=== PATIENT | male | born 1995 | race Hispanic/Latino ===

== ENCOUNTER 2021-02-06 14:16 | Emergency (ER) | payer BC ==
--- NOTE | 2021-02-06 15:20 | RAD REPORT ---
EXAM DESCRIPTION: RAD - Chest Single View - 02/06/2021 2:56 pm CLINICAL HISTORY: DYSPNEA COMPARISON: No comparisons FINDINGS: Lines: None. Lungs: No evidence of edema or pneumonia. Pleural: No significant pleural effusions or pneumothorax. Cardiac: The heart size is within normal limits. Bones: No acute fractures. Other: IMPRESSION: No acute cardiopulmonary disease.
[2021-02-06] MEDS ORDERED: ACETAMINOPHEN 500 MG TAB ONE (15:21)
--- NOTE | 2021-02-06 16:39 | ER ---
Nurse's Notes [facility] Name: Sae Abbott Age: 25 yrs Sex: Male : 1995 Arrival Date: 02/06/2021 Time: 14:20 Bed 24 Private MD: Diagnosis: Coronavirus infection, unspecified Presentation: 02/06 14:32 Chief complaint: Patient states: sob, fever x 3days, tmax 103. Coronavirus screen: tr6 Vaccine status: Patient reports being unvaccinated. At this time, unable to obtain information related to travel outside the [place] fatigue, fever, shortness of breath, Client reports previous positive COVID test result. Ebola Screen: No symptoms or risks identified at this time. Initial Sepsis Screen: Does the patient meet any 2 criteria? Temp <36.0*C (96.8*F)) or > 38.3*C (100.9*F). HR > 90 bpm. Yes Does the patient have a suspected source of infection?. Risk Assessment: Do you want to hurt yourself or someone else? Patient reports no desire to harm self or others. Onset of symptoms is unknown. 14:32 Method Of Arrival: Ambulatory tr6 14:32 Acuity: EBER 2 tr6 Triage Assessment: 14:53 General: Appears uncomfortable, unkempt, Behavior is calm, cooperative, appropriate for tr6 age. Pain: Complains of pain in generalized body aches. EENT: No deficits noted. Neuro: No deficits noted. Cardiovascular: Rhythm is sinus tachycardia. Respiratory: Reports shortness of breath Onset: The symptoms/episode began/occurred gradually, the patient has moderate shortness of breath. GI: No deficits noted. : No deficits noted. Derm: No deficits noted. Musculoskeletal: No deficits noted. Historical: - Allergies: 14:53 No Known Allergies; tr6 - Home Meds: 14:53 None [Active]; tr6 - PMHx: 14:53 None; tr6 - PSHx: 14:53 None; tr6 - Immunization history:: Adult Immunizations up to date, Client reports having NOT received the Covid vaccine. - Social history:: Smoking status: unknown. Screenin:35 Abuse screen: Denies threats or abuse. Denies injuries from another. Nutritional tr6 screening: No deficits noted. Tuberculosis screening: No symptoms or risk factors identified. Fall Risk None identified. Assessment: 14:35 Pain: Denies pain. Cardiovascular: Rhythm is sinus tachycardia. Respiratory: Airway is tr6 patent Respiratory effort is even, unlabored, 16:00 Reassessment: No changes from previously documented assessment. Patient and/or family bp updated on plan of care and expected duration. Pain level reassessed. Patient is alert, oriented x 3, equal unlabored respirations, skin warm/dry/pink. ALL CURRENT ORDERS COMPLETE. 16:37 Reassessment: Pt COVID+ per lab, Lo Arango, PLASTIC PANEL INSTALLER aware. es2 16:48 Reassessment: PT D/C HOME AMBULATORY, DX WITH COVID 19. es2 Vital Signs: 14:32 BP 122 / 85; Pulse 135; Resp 20; Temp 103.1(O); Pulse Ox 100% on R/A; tr6 16:00 BP 110 / 80; Pulse 111; Resp 20; Pulse Ox 99% ; bp 16:39 BP 133 / 92; Pulse 108; Resp 20; Pulse Ox 99% ; es2 ED Course: 14:20 Patient arrived in ED. as 14:23 Lo Arango[facility] kb 14:23 Shin Loomis MD is Attending Physician. kb 14:34 Triage completed. tr6 14:35 Patient has correct armband on for positive identification. Bed in low position. Call tr6 light in reach. Side rails up X 1. baking assistant on. Pulse ox on. NIBP on. 14:54 No provider procedures requiring assistance completed. tr6 14:55 Ron Valentino, RN is Primary Nurse. bp 14:57 Chest Single View XRAY In Process Unspecified. EDMS 16:39 Patient notified of wait time. es2 16:48 Patient did not have IV access during this emergency room visit. es2 Administered Medications: 14:56 Drug: Tylenol 1000 mg Route: PO; bp 16:40 Follow up: Response: No adverse reaction es2 Outcome: 16:38 Discharge ordered by . kb 16:48 Discharged to home ambulatory. es2 16:48 Condition: stable 16:48 Discharge instructions given to patient, Instructed on discharge instructions, follow up and referral plans. Demonstrated understanding of instructions, follow-up care. 16:50 Patient left the ED. es2 Signatures: Dispatcher [employer] EDMS Lo Arango, PHOTO SPECIALIST-C PHOTO SPECIALIST-Panchitob Varsha Red Brian RN RN bp Yolanda Rendon RN RN tr6 Goldie Najera RN RN es2 Corrections: (The following items were deleted from the chart) 16:50 16:48 Discharge instructions given to patient, Instructed on discharge instructions, es2 follow up and referral plans. medication usage, Demonstrated understanding of instructions, follow-up care, medications, Prescriptions given X 3, es2
--- NOTE | 2021-02-06 16:39 | EDPHYS ---
Physician Documentation [facility] Name: Sae Abbott Age: 25 yrs Sex: Male : 1995 Arrival Date: 02/06/2021 Time: 14:20 Bed 24 Private MD: ED Physician Shin Loomis HPI: 02/06 15:09 This 25 yrs old Male presents to ER via Ambulatory with complaints of Fever, kb Shortness Of Breath. 15:09 The patient or guardian reports cough, that is intermittent, described as moderate, kb difficulty breathing, flu symptoms, low-grade fever, myalgias. Onset: The symptoms/episode began/occurred 4 day(s) ago. Severity of symptoms: At their worst the symptoms were mild, moderate, in the emergency department the symptoms are unchanged. Modifying factors: The symptoms are alleviated by nothing, the symptoms are aggravated by nothing. Associated signs and symptoms: Pertinent positives: fever. The patient has not experienced similar symptoms in the past. The patient has not recently seen a physician. Historical: - Allergies: 14:53 No Known Allergies; tr6 - Home Meds: 14:53 None [Active]; tr6 - PMHx: 14:53 None; tr6 - PSHx: 14:53 None; tr6 - Immunization history:: Adult Immunizations up to date, Client reports having NOT received the Covid vaccine. - Social history:: Smoking status: unknown. ROS: 15:08 Cardiovascular: Negative for chest pain, palpitations, and edema. kb 15:08 Constitutional: Positive for body aches, chills, fatigue, fever, malaise. 15:08 Respiratory: Positive for cough, dyspnea on exertion, Negative for hemoptysis, orthopnea, pleurisy, shortness of breath, sputum production, wheezing. 15:08 All other systems are negative. Exam: 15:08 Constitutional: This is a well developed, well nourished patient who is awake, alert, kb and in no acute distress. Head/Face: Normocephalic, atraumatic. ENT: Moist Mucous membranes Respiratory: Respirations even and unlabored. No increased work of breathing, no retractions or nasal flaring. Skin: Warm, dry with normal turgor. Normal color. MS/ Extremity: Pulses equal, no cyanosis. Neurovascular intact. Full, normal range of motion. Neuro: Awake and alert, GCS 15, oriented to person, place, time, and situation. Moves all extremities. Normal gait. Psych: Awake, alert, with orientation to person, place and time. Behavior, mood, and affect are within normal limits. Vital Signs: 14:32 BP 122 / 85; Pulse 135; Resp 20; Temp 103.1(O); Pulse Ox 100% on R/A; tr6 16:00 BP 110 / 80; Pulse 111; Resp 20; Pulse Ox 99% ; bp 16:39 BP 133 / 92; Pulse 108; Resp 20; Pulse Ox 99% ; es2 MDM: 14:24 Patient medically screened. kb 15:08 Data reviewed: vital signs, nurses notes. Data interpreted: Pulse oximetry: on room air kb is 100 %. Interpretation: normal. 16:36 Counseling: I had a detailed discussion with the patient and/or guardian regarding: the kb historical points, exam findings, and any diagnostic results supporting the discharge/admit diagnosis, lab results, radiology results, the need for outpatient follow up, a family practitioner, to return to the emergency department if symptoms worsen or persist or if there are any questions or concerns that arise at home. 02/06 14:27 Order name: Flu; Complete Time: 16:11 kb 02/06 14:28 Order name: Chest Single View XRAY; Complete Time: 15:21 kb 02/06 14:32 Order name: Strep; Complete Time: 16:11 kb 02/06 16:11 Order name: Throat Culture EDMS 02/06 16:36 Order name: SARS-COV-2 RT PCR; Complete Time: 16:36 EDMS Administered Medications: 14:56 Drug: Tylenol 1000 mg Route: PO; bp 16:40 Follow up: Response: No adverse reaction es2 Disposition: 02/07 06:39 Co-signature as Attending Physician, Shin Loomis MD I agree with the assessment and yuridia plan of care. Disposition Summary: 02/06/21 16:38 Discharge Ordered Location: Home kb Condition: Stable kb Diagnosis - Coronavirus infection, unspecified kb Followup: kb - With: Emergency Department - When: As needed - Reason: Worsening of condition Followup: kb - With: Private Physician - When: 2 - 3 days - Reason: Recheck today's complaints, Continuance of care, Re-evaluation by your physician Discharge Instructions: - Discharge Summary Sheet kb - COVID-19 kb - COVID-19 Frequently Asked Questions kb - 10 Things You Can Do to Manage Your COVID-19 Symptoms at Home - [facility] kb Forms: - Medication Reconciliation Form kb - Thank You Letter kb - Antibiotic Education kb - Prescription Opioid Use kb Signatures: Dispatcher [employer] EDMS Lo Arango, JOSE FAJARDO-Shin Hooper MD MD cha Peltier, Brian, RN RN Yolanda Rendon RN RN tr6 Goldie Najera RN es2 Corrections: (The following items were deleted from the chart) 02/06 15:15 14:27 CORONAVIRUS+MR.LAB.BRZ ordered. EDIL EDIL
[2021-02-06 16:55] VITALS: TEMP 103.1
[2021-02-06 16:56] VITALS: O2SAT 99
[2021-02-06 16:58] VITALS: BP 133/92
== END 2021-02-06 16:50 | disposition home or self-care (01) ==
LOC: ER 14:16
DX: U07.1 COVID-19 (principal)
CPT/HCPCS: 87070; 87081; 87804 ×2; 71045; 99284; U0003

== ENCOUNTER 2023-01-05 22:54 | Emergency (ER) | payer BC ==
--- OUTSIDE RECORDS SUMMARY | 2023-01-05 22:58 | XMS REPORT | Continuity of Care Document ---
:[address] [facility] t Address [address] [place] [address] Care Team Providers Name Role Phone PCP, PATIENT DOES NOT HAVE A Primary Care Physician Unavaila ble RADIOLOGY Attending Clinician Unavailable Roger Whitmore MD Attending Clinician [phone] Doctor Unassigned, [place] Attending Clinician Unavailable SHIMON PARADA Attending Clinician Unavailable SHIMON PARADA Attending Clinician Unavailable NOAM APONTE Attending Clinician Unavailable Therapy, Adc Covid Infusion Attending Clinician Unavailable Noam Aponte MD Attending Clinician Lab, Adc Fam Pob I Attending Clinician Unavailable Godfrey Roldan MD Attending Clinician GODFREY ROLDAN Attending Clinician Unavailable TIGRE KELLOGG Attending Clinician Unavailable Payers Payer Name Policy Type Policy Number Effective Date Expiration Date S ource Problems This patient has no known problems. Allergies, Adverse Reactions, Alerts Allergy Allergy Status Severity Reaction(s) Onset Inactive Treating Comm ents Source Name Type Date Date Clinician NO KNOWN Drug Active Univers ALLERGIE Class ity of [facility] Family History Family Member Diagnosis Comments Start Date Stop Date Source Natural father [facility] Natural mother Hy[facility] Social History Social Habit Start Date Stop Date Quantity Comments Source Gender identity [facility] Sexual orientation [facility] History of Social 2022-09-21 2022-09-[address] function 00:00:00 00:00:00 Hospital Tobacco use and 2022-08-14 2022-08-14 Smokeless tobacco Me thodist exposure 00:00:00 00:00:00 non-user Hospital Alcohol intake 2022-08-14 2022-08-14 Current drinker [facility] 00:00:00 00:00:00 of alcohol Hospital (finding) Alcohol Comment 2022-08-14 2022-08-14 occasional [facility] 00:00:00 00:00:00 Hospital Exposure to 2022-05-13 2022-05-23 Not sure University SARS-CoV-2 (event) 00:00:00 10:42:00 [facility] Sex Assigned At [birth year] [facility] 00:00:00 00:00:00 Hospital Smoking Status Start Date Stop Date Source Tobacco [facility] Medications Ordered Filled Start Stop Current Ordering Indication Dosage Frequency Signature Comments Components Source Medication Medication Date Date Medication? Clinician (SIG) Name Name pregabalin 2022- No 150mg Q.5D Take 1 [facility] (LYRICA) 5-19 11-[address] 150 MG 00:00: 05:59 (150 mg Hospita capsule 00 :00 total) by l mouth 2 (two) times a day for 180 days. acetaminoph Yes 325mg Q6H Take 1 [facility] en 4-[address] (TYLENOL) 14:59: (325 mg Hospi ta 325 MG 57 total) by l tablet mouth every 6 (six) hours as needed for fever. cholecalcif Yes 2000U QD Take 1 [facility] umu, 4-[address] vitamin D3, 14:59: (2,000 Hosp juan m 50 mcg 57 Units l (2,000 total) by unit) mouth capsule daily. capsule pregabalin 2022- No Method i (LYRICA) 75 3-14 05-19 st MG capsule 00:00: 00:00 Hospit a 00 :00 l casirivimab 2020-05- No [id number] 1200mg 1,200 mg, Univers -imdevimab 0-05 10-05 Subcutaneo it y of (REGEN-COV 22:00: 20:55 us, ONCE, [place] (EUA)) 00 :00 1 dose, On Medical injection Karen Dominguez 1,200 mg 02/08/21 at 1700, Routine Immunizations Ordered Filled Immunization Date Status Comments Sour e Immunization Name Name Influenza Virus 2012-01-24 Completed Universit y of Vaccine - Whole 00:00:00 [facility] Influenza Virus 2012-01-24 Completed Universit y of Vaccine - Whole 00:00:00 [facility] Influenza Virus 2012-01-24 Completed Universit y of Vaccine - Whole 00:00:00 [facility] Influenza Virus 2011-02-22 Completed Universit y of Vaccine - Whole 00:00:00 [facility] HPV 2011-02-22 Completed University of 00:00:00 [facility] Influenza Virus 2011-02-22 Completed Universit y of Vaccine - Whole 00:00:00 [facility] HPV 2011-02-22 Completed University of 00:00:00 [facility] Influenza Virus 2011-02-22 Completed Universit y of Vaccine - Whole 00:00:00 [facility] HPV 2011-02-22 Completed University of 00:00:00 [facility] HPV 2010-10-26 Completed University of 00:00:00 [facility] HPV 2010-10-26 Completed University of 00:00:00 [facility] HPV 2010-10-26 Completed University of 00:00:00 [facility] Vital Signs Vital Name Observation Time Observation Value Comments Source Systolic blood 2021-02-08 21:41:00 122 mm[Hg] Univer sity of pressure [facility] Diastolic blood 2021-02-08 21:41:00 67 mm[Hg] Unive rsity of pressure [facility] Heart rate 2021-02-08 21:41:00 86 /min [facility] Body temperature 2021-02-08 21:41:[address] [facility] Respiratory rate 2021-02-08 21:41:00 18 /min [facility] Oxygen saturation in 2021-02-08 21:41:00 96 /min [facility] Arterial blood by [facility] Pulse oximetry Branch Body height 2021-02-08 20:40:00 172.7 cm [facility] Body weight 2021-02-08 20:40:00 88.451 kg [facility] BMI 2021-02-08 20:40:00 29.65 kg/m2 [facility] Systolic blood 2022-08-14 19:58:00 155 mm[Hg] [facility] pressure Diastolic blood 2022-08-14 19:58:00 90 mm[Hg] [facility] pressure Heart rate 2022-08-14 19:58:00 121 /min [facility] Respiratory rate 2022-08-14 19:58:00 18 /min [facility] height 2022-08-14 19:58:00 172.7 cm [facility] Body weight 2022-08-14 19:58:00 93.35 kg [facility] BMI 2022-08-14 19:58:00 31.29 kg/m2 [facility] Procedures Procedure Date / Time Performed Performing Clinician Sourc e EMG 2022-09-25 [facility]:20[facility] CERVICAL SPINE 2 2022-08-14 20:53:27 [facility] OR 3 VW Kendy EXTERNAL PROVIDER 2022-05-24 06:01:00 Doctor Unassigned, No Univ [facility] RECORDS Name [facility] Branch REFERRAL- 2022-05-16 06:01:00 Doctor Unassigned, No [facility] REQUEST/RESPONSE Name [facility] CONSENT/REFUSAL FOR 2021-02-08 05:01:00 [facility] AND Name [facility] TREATMENT Plan of Care Planned Activity Planned Date Details Comments Source Future Scheduled 2023-01-02 [facility] Test 23:42:13 (#1) [code = COVID-19 VACCINE (#1)] Future Scheduled 2023-01-02 Hepatitis C [facility] Test 23:42:13 screening (procedure) [code = 049719126] Future Scheduled 2023-01-02 INFLUENZA VACCINE Method [facility] Test 23:42:13 (#1) [code = INFLUENZA VACCINE (#1)] Encounters Start End Encounter Admission Attending Care Care Encounter Source Date/Time Date/Time Type Type Clinicians Facility Department ID 2022-09-22 2022-09-22 Procedure Gato Whitmore.2.840.1 [id number] Methodi 15:00:00 15:57:57 visit Roger 36994.1.[address] Kendy 3.430.2.7 Hospi ta .3.333697 l .8 2022-09-22 2022-09-22 Travel 1.2.840.1 1.2.195.229 [id number] Methodi 00:00:00 00:00:[address] 3.430.2.7 0.2.7.3.698 Ho spita .3.446242 084.8 l .8 2022-09-22 2022-09-22 Outpatient [facility] [id number] [place] 00:00:00 00:00:[address] 2022-08-14 2022-08-14 Office [facility], 1.2.840.1 [id number] Methodi 15:00:00 15:37:25 Visit Roger 99167.1.[address] [facility] 3.430.2.7 Hospi ta .3.038497 l .8 2022-08-14 2022-08-14 Travel 1.2.840.1 1.2.494.452 [id number] Methodi 00:00:00 00:00:[address] 3.430.2.7 0.2.7.3.698 Ho spita .3.133384 084.8 l .8 2022-08-14 2022-08-14 Outpatient [facility] [id number] [place] 00:00:00 00:00:00 ROGER 879 Method i 2022-08-14 2022-08-14 Outpatient [facility] [id number] [place] 00:00:00 00:00:[address] 2022-05-24 2022-05-24 Orders Doctor KEITH 1.2.840.114 [id number] [facility] 00:00:00 00:00:00 Only Unassigned, EDMUND 350.1.13.10 ity of [place] [facility] 4.2.7.2.686 Aram as [phone] [address] 2022-05-23 2022-05-23 Outpatient R SHIMON PARADA [facility] [id number] Univers 11:00:00 11:00:00 SHIMON PARADA ivonne [facility] 2022-05-23 2022-05-23 Travel 1.2.840.1 1.2.681.129 [id number] Methodi 00:00:00 00:00:[address] 3.430.2.7 0.2.7.3.698 Ho spita .3.156438 084.8 l .8 2022-05-16 2022-05-16 Orders Doctor KEITH 1.2.840.114 [id number] Univers 00:00:00 00:00:00 Only Unassigned, EDMUND 350.1.13.10 ity of [place] [facility] 4.2.7.2.686 Aram as [phone] [address] 2021-02-08 2021-02-08 Outpatient Thor APONTE [facility] [id number] Univers 16:00:00 16:00:00 NOAM [facility] 2021-02-08 2021-02-08 Nurse Therapy, Adc Covid Infusion [facility] 1.2.840.114 [id number] Univers 12:42:49 13:42:49 Visit Noam Aponte 350.1.13.10 ity [place] 4[place]2.686 [place] [facility] [phone] [facility] [address] 2021-02-08 2021-02-08 Orders Doctor KEITH 1.2.840.114 [id number] Univers 00:00:00 00:00:00 Only Unassigned, EDMUND 350.1.13.10 ity of [place] [facility] 4.2.7.2.686 Aram as [id number] [address] 2020-11-24 2020-11-24 Laboratory Lab, Adc Fam Pob I [facility] 1.2. 840.114 [id number] Univers 15:10:10 15:30:10 Only Godfrey Roldan [facility] 350.1.13.10 ity [facility] 4.2.7.2.686 Aram as Professio [phone] La dical [address] Office [facility] One 2020-11-24 2020-11-24 [facility] [id number] Univers 15:20:00 15:20:00 GODFREY ity [facility] 2020-11-24 2020-11-24 [facility] [id number] Univers 14:00:00 14:00:00 TIGRE ity [facility] 2012-05-28 2012-05-28 Outpatient [facility] [id number] Univers 00:00:00 14:15:32 8 ity [facility] 2012-05-09 2012-05-09 Outpatient [facility] [id number] Univers 00:00:00 14:37:02 9 ity [facility] 2012-01-24 2012-01-24 Outpatient [facility] [id number] Univers 00:00:00 14:10:18 4 ity [facility] 2011-11-07 2011-11-07 Outpatient [facility] [id number] Univers 00:00:00 09:57:53 1 ity [facility] 2011-11-02 2011-11-02 Outpatient [facility] [id number] Univers 00:00:00 16:38:49 4 ity [facility] 2011-02-22 2011-02-22 Outpatient [facility] [id number] Univers 00:00:00 10:24:56 0 ity [facility] 2010-10-26 2010-10-26 Outpatient [facility] [id number] Univers 00:00:00 14:43:21 0 ity [facility] 2010-08-24 2010-08-24 Outpatient [facility] [id number] Univers 00:00:00 14:56:54 2 ity [facility] Results This patient has no known results.
[2023-01-05] MEDS ORDERED: MORPHINE 4 MG/ML SYR ONE (23:38)
[2023-01-05] MEDS ORDERED: KETOROLAC 30 MG/ML INJ ONE (23:38)
[2023-01-05] MEDS ORDERED: NA CHLORIDE 0.9% 1,000 ML ONE (23:38)
[2023-01-05 23:41] LABS: Absolute Lymphocytes (CBC) 2.1 K/uL (0.7-4.9); Hematocrit 41.6 % (39.6-49.0); Lymphocytes % 17.8 % (15.3-44.8); MCV 84.7 fL (80-100); MPV 8.3 fL (7.6-11.3); Platelets 281 thou/uL (152-406); RBC Red Blood Cell Count 4.92 M/uL (4.33-5.43)
[2023-01-05 23:46] LABS: Specific Gravity 1.023 (1.005-1.030); Urine Bacteria None Seen /HPF (<20); Urine Bilirubin NEGATIVE (Negative); Urine Blood 3+ (OVER) (Negative); Urine Clarity Turbid (Clear); Urine Color Light-Yellow (Yellow); Urine Glucose NEGATIVE (Negative); Urine Mucus 1+ /HPF (None Seen); Urine Protein TRACE (Negative); Urine RBC >50 /HPF (None Seen); Urine Urobilinogen Normal (Normal)
[2023-01-05 23:57] LABS: Albumin 4.2 g/dL (3.4-5.0); Bilirubin Total 0.3 mg/dL (0.2-1.0); Potassium 3.8 mEq/L (3.5-5.1); Protein, Total 8.2 g/dL (6.4-8.2)
[2023-01-06] MEDS ORDERED: TAMSULOSIN 0.4 MG SR CAP ONE (01:13)
--- NOTE | 2023-01-06 01:54 | ER ---
Nurse's Notes [facility] Name: Sae Abbott Age: 27 yrs Sex: Male : 1995 Arrival Date: 01/05/2023 Time: 22:54 Bed 20 Private MD: Jorge Monroe Diagnosis: Hydronephrosis with renal and ureteral calculous obstruction;Unspecified renal colic Presentation: 01/05 23:01 Chief complaint: Patient states: Severe lower left hip pain going to my spine as well. vc1 Coronavirus screen: Client denies travel out of the [place] in the last 14 days. At this time, the client does not indicate any symptoms associated with coronavirus-19. Ebola Screen: Patient negative for fever greater than or equal to 101.5 degrees Fahrenheit, and additional compatible Ebola Virus Disease symptoms Patient denies exposure to infectious person. Patient denies travel to an Ebola-affected area in the 21 days before illness onset. No symptoms or risks identified at this time. Initial Sepsis Screen: Does the patient meet any 2 criteria? HR > 90 bpm. No. Patient's initial sepsis screen is negative. Does the patient have a suspected source of infection? Yes: Dysuria/Frequency/Urgency/UTI. Risk Assessment: Do you want to hurt yourself or someone else? Patient reports no desire to harm self or others. Onset of symptoms was January 04, 2023. 23:01 Method Of Arrival: Ambulatory vc1 23:01 Acuity: EBER 3 vc1 Triage Assessment: 23:03 General: Appears uncomfortable, Behavior is cooperative, appropriate for age. Pain: vc1 Complains of pain in anterior aspect of left lateral abdomen and left lower quadrant Pain radiates to left low back Pain currently is 9 out of 10 on a pain scale. Noted to be grimacing, guarding. EENT: No deficits noted. No signs and/or symptoms were reported regarding the EENT system. Neuro: Level of Consciousness is awake, alert, obeys commands, Oriented to person, place, time, situation, Appropriate for age. Cardiovascular: No deficits noted. Respiratory: Airway is patent Respiratory effort is even, unlabored, Respiratory pattern is regular, symmetrical. GI: Reports lower abdominal pain. : Reports pain in left flank(s), lower quadrant(s) in lower back urinary frequency. Derm: No deficits noted. No signs and/or symptoms reported regarding the dermatologic system. Musculoskeletal: No deficits noted. No signs and/or symptoms reported regarding the musculoskeletal system. Historical: - Allergies: 23:03 No Known Allergies; vc1 - Home Meds: 23:03 None [Active]; vc1 - PMHx: 23:03 None; vc1 - PSHx: 23:03 None; vc1 - Immunization history:: Client reports having NOT received the Covid vaccine. - Social history:: Smoking status: Patient denies any tobacco usage or history of. Screenin:31 [facility] ED Fall Risk Assessment (Adult) History of falling in the last 3 months, lg3 including since admission No falls in past 3 months (0 pts). Abuse screen: Denies threats or abuse. Denies injuries from another. Nutritional screening: No deficits noted. Tuberculosis screening: No symptoms or risk factors identified. Assessment: 23:31 General: Appears in no apparent distress. uncomfortable, Behavior is calm, cooperative. lg3 Pain: Complains of pain in left groin Pain radiates to back. Neuro: No deficits noted. Bolton Agitation-Sedation Scale (RASS): 0 - Alert and Calm Level of Consciousness is awake, alert, obeys commands, Oriented to person, place, time, situation. Cardiovascular: No deficits noted. Denies chest pain, shortness of breath, Capillary refill < 3 seconds Clubbing of nail beds is absent JVD is absent Patient's skin is warm and dry. Respiratory: No deficits noted. Airway is patent Respiratory effort is even, unlabored, Respiratory pattern is regular, symmetrical. GI: Abdomen is round non-distended, Bowel sounds present X 4 quads. Abd is soft X 4 quads Abdomen is tender to palpation in left lower quadrant. : No deficits noted. Reports urinary frequency. EENT: No deficits noted. No signs and/or symptoms were reported regarding the EENT system. Derm: No deficits noted. No signs and/or symptoms reported regarding the dermatologic system. Skin is intact, is healthy with good turgor, Skin is dry, Skin is normal, Skin temperature is warm. Musculoskeletal: No deficits noted. No signs and/or symptoms reported regarding the musculoskeletal system. Circulation, motion, and sensation intact. Range of motion: intact in all extremities. 01/06 01:00 Reassessment: Patient and/or family updated on plan of care and expected duration. Pain lg3 level reassessed. Patient is alert, oriented x 3, equal unlabored respirations, skin warm/dry/pink. Patient states feeling better. Patient states symptoms have improved. 02:10 Reassessment: Patient appears in no apparent distress at this time. No changes from lg3 previously documented assessment. Patient and/or family updated on plan of care and expected duration. Pain level reassessed. Patient is alert, oriented x 3, equal unlabored respirations, skin warm/dry/pink. Patient states feeling better. Vital Signs: 01/05 23:01 BP 150 / 105; Pulse 117; Resp 18; Temp 99.9(O); Pulse Ox 99% ; Weight 90.72 kg; Height vc1 5 ft. 8 in. ; Pain 9/10; 01/06 01:06 BP 133 / 83; Pulse 69; Resp 17; Pulse Ox 100% on R/A; me1 01/05 23:01 Body Mass Index 30.41 (90.72 kg, 172.72 cm) vc1 01/05 23:01 Pain Scale: Adult vc1 ED Course: 01/05 22:56 Patient arrived in ED. mr 22:56 Jorge Monroe is Private Physician. mr 23:03 Triage completed. vc1 23:03 [facility]idel[facility]maguer [facility]C [facility]. snw 23:03 Shin Loomis MD is Attending Physician. snw 23:03 Arm band placed on right wrist. vc1 23:18 Maia Santoyo, RN is Primary Nurse. lg3 23:31 Patient has correct armband on for positive identification. Placed in gown. Bed in low lg3 position. Call light in reach. Side rails up X 1. Client placed on continuous cardiac and pulse oximetry monitoring. NIBP monitoring applied. Door closed. Noise minimized. Warm blanket given. Family accompanied patient. 23:31 Initial lab(s) drawn, by me, sent to lab. Urine collected: clean catch specimen, clear. lg3 Inserted saline lock: 20 gauge in right antecubital area, using aseptic technique. Blood collected. Patient maintains SpO2 saturation greater than 95% on room air. 01/06 00:24 CT Stone Protocol In Process Unspecified. EDMS 01:53 Jorge Monroe is Referral Physician. snw 01:53 Referral Physician role handed off by Jorge Monroe snw 01:54 Jorge Monroe is Referral Physician. snw 02:15 No provider procedures requiring assistance completed. IV discontinued, intact, lg3 bleeding controlled, No redness/swelling at site. Pressure dressing applied. Administered Medications: 01/05 23:33 Drug: NS 0.9% IV 1000 ml Route: IV; Rate: 1 bolus; Site: right antecubital; lg3 01/06 02:10 Follow up: Response: No adverse reaction; IV Status: Completed infusion; IV Intake: lg3 1000ml 01/05 23:34 Drug: TORadol - Ketorolac IVP 15 mg Route: IVP; Site: right antecubital; lg3 01/06 02:11 Follow up: Response: No adverse reaction lg3 01/05 23:34 Drug: morphine IVP or IV 4 mg Route: IVP; Infused Over: 4 mins; Site: right antecubital;lg3 01/06 02:14 Follow up: Response: No adverse reaction; Pain is decreased lg3 01:06 Drug: Flomax PO 0.4 mg Route: PO; me1 02:10 Follow up: Response: No adverse reaction lg3 Medication: 02:16 VIS not applicable for this client. lg3 Intake: 02:10 IV: 1000ml; Total: 1000ml. lg3 Outcome: 01:54 Discharge ordered by . snw 02:15 Discharged to home ambulatory, with family. lg3 02:15 Condition: stable 02:15 Discharge instructions given to patient, Instructed on discharge instructions, follow up and referral plans. medication usage, Demonstrated understanding of instructions, follow-up care, medications, Prescriptions given X 3. 02:16 Patient left the ED. lg3 Signatures: Dispatcher [employer] EDMS Fidelina Almaguer FNP-C BRINE MAKER-Missy AbbottNasima Lacie RN RN lg3 Anel Bailey RN RN vc1 Kendy Leos RN RN me1
--- NOTE | 2023-01-06 01:54 | EDPHYS ---
Physician Documentation [facility] Name: Sae Abbott Age: 27 yrs Sex: Male : 1995 Arrival Date: 01/05/2023 Time: 22:54 Bed 20 Private MD: Jorge Monroe ED Physician Shin Loomis HPI: 01/05 23:28 This 27 yrs old Male presents to ER via Ambulatory with complaints of snw Abdominal Pain. 23:28 The patient presents with abdominal pain in the left lower quadrant. Onset: The snw symptoms/episode began/occurred acutely, 1 day(s) ago, and became persistent. The symptoms radiate to left back. Associated signs and symptoms: none. The symptoms are described as crampy. Severity of pain: At its worst the pain was moderate severe incapacitating. The patient has experienced a previous episode, but today's symptoms are worse. The patient has not recently seen a physician. Historical: - Allergies: 23:03 No Known Allergies; vc1 - Home Meds: 23:03 None [Active]; vc1 - PMHx: 23:03 None; vc1 - PSHx: 23:03 None; vc1 - Immunization history:: Client reports having NOT received the Covid vaccine. - Social history:: Smoking status: Patient denies any tobacco usage or history of. ROS: 23:28 Constitutional: Negative for fever, chills, and weight loss, Eyes: Negative for injury, snw pain, redness, and discharge, ENT: Negative for injury, pain, and discharge, Neck: Negative for injury, pain, and swelling, Cardiovascular: Negative for chest pain, palpitations, and edema, Respiratory: Negative for shortness of breath, cough, wheezing, and pleuritic chest pain, Back: Negative for injury and pain, : Negative for injury, bleeding, discharge, and swelling, MS/Extremity: Negative for injury and deformity, Skin: Negative for injury, rash, and discoloration. 23:28 Abdomen/GI: Positive for abdominal pain, abdominal cramps, of the posterior aspect of left lateral abdomen and left lower quadrant. Exam: 23:27 Constitutional: This is a well developed, well nourished patient who is awake, alert, snw and in mild acute distress. Head/Face: Normocephalic, atraumatic. Eyes: Pupils equal round and reactive to light, extra-ocular motions intact. Lids and lashes normal. Conjunctiva and sclera are non-icteric and not injected. Cornea within normal limits. Periorbital areas with no swelling, redness, or edema. ENT: Nares patent. No nasal discharge, no septal abnormalities noted. Tympanic membranes are normal and external auditory canals are clear. Oropharynx with no redness, swelling, or masses, exudates, or evidence of obstruction, uvula midline. Mucous membranes moist. Neck: Trachea midline, no thyromegaly or masses palpated, and no cervical lymphadenopathy. Supple, full range of motion without nuchal rigidity, or vertebral point tenderness. No Meningismus. Chest/axilla: Normal chest wall appearance and motion. Nontender with no deformity. No lesions are appreciated. Cardiovascular: Tachycardic rate and rhythm with a normal S1 and S2. No gallops, murmurs, or rubs. Normal PMI, no JVD. No pulse deficits. Respiratory: Lungs have equal breath sounds bilaterally, clear to auscultation and percussion. No rales, rhonchi or wheezes noted. No increased work of breathing, no retractions or nasal flaring. Back: No spinal tenderness. No costovertebral tenderness. Full range of motion. Skin: Warm, dry with normal turgor. Normal color with no rashes, no lesions, and no evidence of cellulitis. MS/ Extremity: Pulses equal, no cyanosis. Neurovascular intact. Full, normal range of motion. Neuro: Awake and alert, GCS 15, oriented to person, place, time, and situation. Cranial nerves II-XII grossly intact. Motor strength 5/5 in all extremities. Sensory grossly intact. Cerebellar exam normal. Normal gait. Psych: Awake, alert, with orientation to person, place and time. Behavior, mood, and affect are within normal limits. 23:27 Abdomen/GI: Inspection: abdomen appears normal, Bowel sounds: normal, Palpation: moderate abdominal tenderness, severe abdominal tenderness, in the posterior aspect of left lateral abdomen and left lower quadrant. Vital Signs: 23:01 BP 150 / 105; Pulse 117; Resp 18; Temp 99.9(O); Pulse Ox 99% ; Weight 90.72 kg; Height vc1 5 ft. 8 in. ; Pain 9/10; 01/06 01:06 BP 133 / 83; Pulse 69; Resp 17; Pulse Ox 100% on R/A; me1 01/05 23:01 Body Mass Index 30.41 (90.72 kg, 172.72 cm) vc1 01/05 23:01 Pain Scale: Adult vc1 MDM: 01/05 23:08 Patient medically screened. [facility] 01/06 01:46 Differential diagnosis: diverticulitis, Pyelonephritis, Ureterolithiasis. Data snw reviewed: vital signs, nurses notes. I considered the following discharge prescriptions or medication management in the emergency department Medications were administered in the Emergency Department. See MAR. Counseling: I had a detailed discussion with the patient and/or guardian regarding the historical points, exam findings, and any diagnostic results supporting the discharge/admit diagnosis, the presence of at least one elevated blood pressure reading (>120/80) during this emergency department visit, lab results, radiology results, the need for outpatient follow up, for definitive care, a urologist. 01:53 Response to treatment: the patient's symptoms have markedly improved after treatment. snw Special discussion: Based on the patient's Hx, exam, and Dx evaluation, there is no indication for emergent surgery or inpatient Tx. It is understood by the patient/guardian that if the Sx's persist or worsen they need to return immediately for re-evaluation. Based on the history and exam findings, there is no indication for further emergent testing or inpatient evaluation. I discussed with the patient/guardian the need to see the primary care provider for further evaluation of the symptoms. I discussed with the patient/guardian the need to see the urologist for further evaluation of the symptoms. 01/05 23:09 Order name: CBC with Diff; Complete Time: 23:49 w 01/05 23:09 Order name: CMP; Complete Time: 23:58 snw 01/05 23:09 Order name: Lipase; Complete Time: 23:58 w 01/05 23:09 Order name: Urinalysis w/ reflexes; Complete Time: 23:47 snw 01/05 23:09 Order name: CT Stone Protocol [facility] 01/05 23:09 Order name: IV Saline Lock; Complete Time: 23:34 snw 01/05 23:09 Order name: Labs collected and sent; Complete Time: 23:34 snw 01/06 00:55 Order name: Recheck Vital Signs; Complete Time: 01:06 snw Administered Medications: 01/05 23:33 Drug: NS 0.9% IV 1000 ml Route: IV; Rate: 1 bolus; Site: right antecubital; lg3 01/06 02:10 Follow up: Response: No adverse reaction; IV Status: Completed infusion; IV Intake: lg3 1000ml 01/05 23:34 Drug: TORadol - Ketorolac IVP 15 mg Route: IVP; Site: right antecubital; lg3 01/06 02:11 Follow up: Response: No adverse reaction 3 01/05 23:34 Drug: morphine IVP or IV 4 mg Route: IVP; Infused Over: 4 mins; Site: right antecubital;lg3 01/06 02:14 Follow up: Response: No adverse reaction; Pain is decreased 3 01:06 Drug: Flomax PO 0.4 mg Route: PO; me1 02:10 Follow up: Response: No adverse reaction lg3 Disposition Summary: 01/06/23 01:54 Discharge Ordered Location: Home snw Condition: Stable snw Diagnosis - Hydronephrosis with renal and ureteral calculous obstruction snw - Unspecified renal colic snw Followup: snw - With: Jorge Monroe - When: As needed - Reason: Worsening of condition Followup: snw - With: Emergency Department - When: As needed - Reason: Worsening of condition Followup: snw - With: Jorge Monroe - When: 2 - 3 days - Reason: Recheck today's complaints, Continuance of care, Re-evaluation by your physician Discharge Instructions: - Discharge Summary Sheet snw - Renal Colic snw - Kidney Stones, [id number] snw - Hydronephrosis snw - Dietary Guidelines to Help Prevent Kidney Stones snw - Rehydration, Adult snw Forms: - Work release form snw - Medication Reconciliation Form snw - Thank You Letter snw - Antibiotic Education snw - Prescription Opioid Use snw - Patient Portal Instructions snw - Leadership Thank You Letter snw Prescriptions: - Diclofenac Sodium 75 mg Oral Tablet Sustained Release - take 1 tablet by ORAL route 2 times per day; 30 tablet; Refills: 0, Product snw Selection Permitted - Tramadol 50 mg Oral Tablet - take 1 tablet by ORAL route every 8 hours as needed; 12 tablet; Refills: 0, snw Product Selection Permitted - promethazine 25 mg Oral Tablet - take 1 tablet by ORAL route every 6 hours As needed; 20 tablet; Refills: 0, snw Product Selection Permitted Signatures: Dispatcher [employer] EDMS Fidelina Almaguer, APPLIED RESEARCH DIRECTOR-C APPLIED RESEARCH DIRECTOR-Csnw Maia Santoyo, RN RN lg3 Anel Bailey, RN RN vc1 Kendy Leos RN RN me1 Corrections: (The following items were deleted from the chart) 01/05 23:28 23:27 Constitutional: This is a well developed, well nourished patient who is awake, snw alert, and in mild acute distress. Head/Face: Normocephalic, atraumatic. Eyes: Pupils equal round and reactive to light, extra-ocular motions intact. Lids and lashes normal. Conjunctiva and sclera are non-icteric and not injected. Cornea within normal limits. Periorbital areas with no swelling, redness, or edema. ENT: Nares patent. No nasal discharge, no septal abnormalities noted. Tympanic membranes are normal and external auditory canals are clear. Oropharynx with no redness, swelling, or masses, exudates, or evidence of obstruction, uvula midline. Mucous membranes moist. Neck: Trachea midline, no thyromegaly or masses palpated, and no cervical lymphadenopathy. Supple, full range of motion without nuchal rigidity, or vertebral point tenderness. No Meningismus. Chest/axilla: Normal chest wall appearance and motion. Nontender with no deformity. No lesions are appreciated. Cardiovascular: Regular rate and rhythm with a normal S1 and S2. No gallops, murmurs, or rubs. Normal PMI, no JVD. No pulse deficits. Respiratory: Lungs have equal breath sounds bilaterally, clear to auscultation and percussion. No rales, rhonchi or wheezes noted. No increased work of breathing, no retractions or nasal flaring. Back: No spinal tenderness. No costovertebral tenderness. Full range of motion. Skin: Warm, dry with normal turgor. Normal color with no rashes, no lesions, and no evidence of cellulitis. MS/ Extremity: Pulses equal, no cyanosis. Neurovascular intact. Full, normal range of motion. Neuro: Awake and alert, GCS 15, oriented to person, place, time, and situation. Cranial nerves II-XII grossly intact. Motor strength 5/5 in all extremities. Sensory grossly intact. Cerebellar exam normal. Normal gait. Psych: Awake, alert, with orientation to person, place and time. Behavior, mood, and affect are within normal limits. snw
[2023-01-06 02:22] VITALS: TEMP 99.9
[2023-01-06 02:23] VITALS: BP 133/83; O2SAT 100
--- NOTE | 2023-01-06 21:40 | RAD REPORT ---
EXAM DESCRIPTION: CT - Stone Protocol - 01/06/2023 6:16 am CLINICAL HISTORY: FLANK PAIN COMPARISON: None Available. TECHNIQUE: CT of the abdomen and pelvis without IV contrast. Evaluation of the solid organs and vasc ulature is suboptimal due to lack of IV contrast. This exam was performed according to our department al dose-optimization program, which includes automated exposure control, adjustment of the mA and/or kV according to patient size and/or use of iterative reconstruction technique. FINDINGS: Lung Bases: The visualized lung bases are clear. Abdomen: Liver: The liver has normal contour and density. No obvious mass within the limitations of noncontr ast technique. Gallbladder: No calcified gallstones. Spleen, Pancreas, and Adrenal Glands: The spleen, pancreas, and adrenal glands are unremarkable. Kidneys: The kidneys have normal size without suspicious mass within the limitations of noncontrast t echnique. 4-5 mm obstructing calculus in the proximal left ureter. Mild left hydronephrosis. Vasculature: The aorta and IVC have normal caliber and position. Stomach: The stomach and duodenum have normal course. Other: No free intraperitoneal air. No free fluid or lymphadenopathy. Pelvis: Bladder: Urinary bladder is unremarkable. Bowel: No dilated loops of large or small bowel. Moderate stool in the colon. Appendix: No periappendiceal inflammation. Pelvis: No suspicious mass. Bones: No destructive bone lesions identified. IMPRESSION: Obstructing 4-5 mm proximal left ureteral calculus with mild left hydronephrosis. Electronically signed by: Eunice Blanco MD 01/06/2023 12:41 AM CDT Due to temporary technical issues with the PACS/Fluency reporting system, reports are being signed by the in house radiologists without review as a courtesy to insure prompt reporting. The interpreting radiologist is fully responsible for the content of the report.
== END 2023-01-06 02:16 | disposition home or self-care (01) ==
LOC: ER 22:54
DX: N13.2 Hydronephrosis with renal and ureteral calculous obstruction (principal); N23 Unspecified renal colic
CPT/HCPCS: 96361; 85025; 81001; 36415; 83690; 80053; 76377; 74176; 96375; 96374; 99285; J7030